=== PATIENT | female | born 1960 | race Two or more races ===

== ENCOUNTER 2022-06-22 04:16 | Day surgery (SDC) | payer OTHER, BC ==
[2022-06-21 09:40] VITALS: BMI 32.1
[2022-06-22] MEDS ORDERED: PROPOFOL 20 ML ONE (14:23)
[2022-06-22] MEDS ORDERED: ceFAZolin SODIUM 1 GM VIAL ONE ×2 (14:23)
[2022-06-22] MEDS ORDERED: FENTANYL CITRATE/PF 50 MCG/ML VIAL ONE (14:23)
[2022-06-22] MEDS ORDERED: MIDAZOLAM HCL 2 MG/2 ML SINGLE DOSE VIAL ONE (14:24)
[2022-06-22] MEDS ORDERED: ceFAZolin 2 GRAM PREMIX BAG IVPB ONE (14:29)
[2022-06-22] MEDS ORDERED: ONDANSETRON 4 MG/2 ML VIAL ONE (14:42)
[2022-06-22 15:23] VITALS: PULSE 72; RESP 18
[2022-06-22 15:58] VITALS: BP 145/81; TEMP 98
== END 2022-06-22 15:50 | disposition home or self-care (01) ==
LOC: JASU-SURG 04:16
PROVIDERS: ATTEND Urology
PROC: 0TF4XZZ Fragmentation in Left Kidney Pelvis, External Approach (ICD-10-PCS; principal; 2022-06-22 13:30)
DX: N20.0 Calculus of kidney (principal)
CPT/HCPCS: 82962